=== PATIENT | female | born 1995 | race Caucasian/White ===

== ENCOUNTER 2021-12-09 11:00 | Outpatient (RCR) | payer OTHER, SELFPAY ==
--- NOTE | 2021-11-11 08:13 | PTOPEVAL ---
PHYSICAL THERAPY INITIAL EVALUATION. Thank you for referring Anna Ortiz to [facility] The patient is scheduled to be seen for therapy? 1x/week for 6 weeks. Please review, sign, date and return this plan of care MANINDER. I agree with and certify that the following plan of care is medically necessary. Referring Physician Date Attending Provider: Jennifer Soni *PT Outpatient Evaluation Start: 11/09/21 Evaluation Information Diagnosis upper and lower back pain Onset chronic Subjective Information Pt states she is in the Query Text:As Reported By Patient/ process of getting a breast Family reduction surgery. Completing physical therapy is one of her requirements. She reports a chronic history of upper and low back pain. Pt states bending over increases her upper back pain. She does not report anything that can make her pain any better. Pt states she does not have much pain at rest, but when performs ADLs or housework, it starts to hurt. Pt reports she has not tried any pain relief options other than medication. Pain Assessment Back Reported Pain Level 4 Pain Description Burning Pain Frequency Chronic,Intermittent Lowest Pain Intensity 0 Greatest Pain Intensity 8 Pain Aggravating Factors ADL's,Bending,Exercise/ Activity,Lifting Pain Behaviors None Pain Relief Interventions Used By Inactivity/Rest,Medication Patient Cervical and Lumbar ROM Cervical ROM Cervical Lateral Flexion Right (0-50) 40 Cervical Lateral Flexion Left (0-50) 40 Cervical ROM Comments flexion, extension, rotation ROM all WNL Lumbar ROM Lumbar Extension (0-40) 40 Lumbar Comments no direciton bias noted with repeated flexion or extension 7 cm of change with forward flexion 5 cm of change with lumbar extension Lower Extremity Muscle Strength Testing Gross Lower Extremity Strength BLE strength grossly 5/5 Upper Extremity Muscle Strength Testing Gross Upper Extremity Strength Comments BUE grossly 5/5 Muscle Length Testing Pectoralis Major Muscle Length (R) Mild Tightness,(L) Mild Tightness Posture Standing Position Head/
--- NOTE | 2021-12-09 11:50 | PTOPDC ---
Assessment and note entered by Ana Bolanos, PT, DPT Evaluation Information Assessment Status Progress Diagnosis upper and lower back pain Subjective Information Pt states she does her exercises when she remembers to, about 1-2 times per week. She states she has started walking for exercise and went to the gym last night. She states her back has been better since she quit her last job. She states she is unsure if therapy is helping. 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 Pt continues to report daily headaches. Reported Pain Level Pain Score 4: Self Report Assessment PT Clinical Summary Anna presents to therapy today for her progress report following 5 visits of therapy to treat her upper and lower back pain. Today she reports 20% improvement in overall symptoms. She demonstrates minimal improvement in her posture and body awareness. She continues to have postural abnormalities including a forward head, rounded shoulders, and increased lordosis. Per patient she is returning to the plastic surgeon next week for her last consultation prior to surgery. She states she felt like she received benefits from therapy for her low back pain and will talk to her primary doctor about returning to therapy to address this. Until then, the patient will be discharged from skilled therapy services with instructions to continue her HEP. Plan of Care PT Services Indicated No Treatment Frequency and to be d/c'ed Duration
== END 2021-12-12 15:35 | disposition home or self-care (01) ==
LOC: ANHGOSHPT 11:00
PROVIDERS: PCP Physician Assistant
DX: N62 Hypertrophy of breast (principal); M54.9 Dorsalgia, unspecified
CPT/HCPCS: 97110; 97112; 97140; 97161; 97530

== ENCOUNTER 2021-12-29 08:44 | Emergency (ER) | payer OTHER, SELFPAY ==
--- NOTE | ~2021-12-29 | XR_ITS ---
EXAMINATION: XR foot LT min 3V DATE: 12/29/2021 09:01 INDICATION: Left foot pain. TECHNIQUE: 4 views of left foot were obtained. COMPARISON: None. FINDINGS: Bone alignment is normal. No fracture. There is mild osteoarthritis of first metatarsophala ngeal joint. IMPRESSION: 1. Mild osteoarthritis of first metatarsophalangeal joint. Reviewed, dictated and finalized at location A.
[2021-12-29 08:49] VITALS: BP 115/64; PULSE 77; RESP 17; TEMP 36.6; O2SAT 100
[2021-12-29] MEDS: KETOROLAC 30 MG/ML VIAL (*BKC) IM (11:09)
--- NOTE | 2021-12-29 11:11 | ED.LOWEXIN ---
HPI - Extremity Injury (Lower) General Chief Complaint: Extremity Injury, Lower Stated Complaint: L foot pain Time Seen by Provider: 12/29/21 10:51 History of Present Illness HPI Narrative: Patient is a 26-year-old female here for evaluation of left foot pain over the past several days. Patient states the pain came on after a long walk. Pain is on the lateral aspect of her foot. Does not radiate. It is described as a cramp, somewhat better with rubbing the area. She attempted Tylenol and ibuprofen without relief, none today. No fevers, chills, nausea, vomiting, pain in her knees. No traumatic injury to the foot as far she knows. She usually wears flip-flops. Related Data Allergies Allergy/AdvReac Type Severity Reaction Status Date / Time Penicillins Allergy Severe HIVES, Unverified 07/25/18 15:01 LETHARGY GADOBENATE DIMEGLUMINE Allergy Mild NAUSEA, Uncoded 07/25/18 15:01 HOT, REDNESS ON CHEST Review of Systems Review of Systems: Gen.: Denies fevers or chills Eyes: Denies eye pain or visual change ENT: Denies congestion Respiratory: Denies shortness of breath or cough CV: Denies chest pain or palpitations GI: Denies abdominal pain nausea, emesis or diarrhea denies burning, urgency, frequency or hematuria Musculoskeletal: Reports left foot pain. Denies back pain or muscle pain Neuro: Denies numbness, tingling, weakness or focal weakness Skin: Denies rash Except as documented, all other systems reviewed and negative Exam Narrative: Gen: Eyes: EOMI, no icterus Pulm: Respirations even and unlabored, symmetric thorax expansion, no audible stridor or visible cyanosis CV: Regular rate per telemetry GI: No distension, no voluntary/involuntary guarding Neuro: AOx4, moves all extremities without apparent difficulty or weakness, follows commands Skin: No jaundice, no visible bruising, rashes, lesions or wounds on exposed skin MSK: Patient reports pain along the lateral aspect of her left foot, but this area is nontender to palpation, no underlying fluctuance or induration. No erythema to the foot. Full range of motion without pain. No bony tenderness to palpation throughout entirety of foot, ankle, lower leg. Compartments are soft. Psych: Normal mood/affect, insight/judgement good, adequate fund of knowledge, recent/remote memory intact Course Vital Signs Vital signs: Vital Signs Temperature 97.8 F 12/29/21 08:49 Pulse Rate 77 12/29/21 08:49 Respiratory Rate 17 12/29/21 08:49 Blood Pressure 115/64 12/29/21 08:49 Pulse Oximetry 100 12/29/21 08:49 Oxygen Delivery Room Air 12/29/21 08:49 Temperature 97.8 F 12/29/21 08:49 Pulse Rate 77 12/29/21 08:49 Respiratory Rate 17 12/29/21 08:49 Blood Pressure 115/64 12/29/21 08:49 Pulse Oximetry 100 12/29/21 08:49 Oxygen Delivery Room Air 12/29/21 08:49 MDM - Extremity Injury (Lower) MDM Narrative Medical decision making narrative: 26 yo F here for evaluation of pain at the lateral aspect of her left foot for the past several days onset after a long walk. She is nontoxic-appearing, vital signs. She has no bony tenderness to palpation. Plain films with evidence of arthritis but no fracture. Considered plantar fasciitis or arthritis. Doubt gout or septic arthritis as patient's foot is not erythematous, and she has been bearing weight. was given Toradol in the ED with improvement of her symptoms. Encouraged patient to wear supportive shoes and follow-up with her primary care provider. She was given reasons to return to the ED and she voiced understanding. Discharge Plan Discharge Clinical Impression: Acute foot pain Qualifiers: Laterality: left Qualified Code(s): M79.672 - Pain in left foot Patient Disposition: Home, Self-Care Condition: Stable Instructions: Antibiotic Form, Arthralgia (ED) Additional Instructions: Your x-ray showed moderate arthritis in the left foot. There is no fracture. Kriss
== END 2021-12-29 11:32 | disposition home or self-care (01) ==
PROVIDERS: Emergency Provider Emergency Medicine; PCP Physician Assistant
DX: M79.672 Pain in left foot (principal)
CPT/HCPCS: 73630; 96372; 99283; J1885

== ENCOUNTER 2022-04-27 20:48 | Emergency (ER) | payer OTHER, SELFPAY ==
[2022-04-27 20:51] VITALS: BP 116/79; PULSE 92; RESP 20; TEMP 37.6; O2SAT 99
--- NOTE | 2022-04-27 21:55 | PC.NURSE ---
pt. up to front desk admin stating we are leaving Pt. ambulated out of ed w/ steady gait. pt. had no signs of distress.
[2022-04-27 22:06] LABS: Influenza A QL RT-PCR Negative (Negative); Influenza B QL RT-PCR Negative (Negative); RSV RNA, RT-PCR Negative (Negative); SARS-CoV-2 RNA PCR Negative
== END 2022-04-27 22:09 | disposition left against medical advice (07) ==
PROVIDERS: Emergency Provider Emergency Medicine; PCP Physician Assistant
DX: R50.9 Fever, unspecified (principal); Z20.822 Contact with and (suspected) exposure to COVID-19
CPT/HCPCS: 87637; 99199

== ENCOUNTER 2022-04-30 11:48 | Emergency (ER) | payer OTHER, SELFPAY ==
[2022-04-30 12:07] VITALS: BP 116/70; PULSE 83; RESP 20; TEMP 36.1; O2SAT 100
--- NOTE | 2022-04-30 12:23 | ED.URI ---
HPI - URI/Sore Throat General Chief Complaint: Upper Respiratory Infection Stated Complaint: Sore Throat/ Sinus Time Seen by Provider: 04/30/22 12:23 History of Present Illness HPI Narrative: 27 y/o female presented for c/o sore throat and congestion for 5 days, with fever at the onset which has resolved. Denies sick contacts. Denies sob, wheezing, fever or chills. States she had one episode of vomiting since onset. Not taking anything for symptoms. Related Data Home Medications Medication Instructions Recorded Confirmed norelgestromin 150 mcg-e.estradiol 1 patch transdermal DIRECTED 04/30/22 04/30/22 35 mcg/24 hr weekly transderm patch (Zafemy) Allergies Allergy/AdvReac Type Severity Reaction Status Date / Time Penicillins Allergy Severe HIVES, Verified 04/30/22 12:06 LETHARGY GADOBENATE DIMEGLUMINE Allergy Mild NAUSEA, Uncoded 04/30/22 12:06 HOT, REDNESS ON CHEST Review of Systems Review of Systems: CONSTITUTIONAL: Denies body aches, fever, chills, or sweats. EYES: Denies visual changes, redness, or discharge. ENT: Reports rhinorrhea, congestion, denies otalgia. CARDIOVASCULAR: Denies chest pain, palpitations, or edema. RESPIRATORY: Denies dyspnea. GASTROINTESTINAL: Denies abdominal pain, nausea, vomiting, or diarrhea. SKIN: Denies rash, itching, or wounds. MUSCULOSKELETAL: Denies back pain, joint pain, or myalgia. NEUROLOGIC: Denies headache Exam Narrative: GENERAL: well-appearing, no acute distress. EYES: conjunctivae clear ENT: Mucous membranes moist. nasal congestion. TM pearly rodriguez with normal light reflex bilaterally; no tragal tenderness. Oropharynx normal Tonsils not enlarged and without exudate. No drooling, no hoarseness, no trismus, uvula midline. No tripod positioning, hot potato voice, or soft palate swelling. NECK: Supple. No lymphadenopathy CHEST: Clear to auscultation, breath sounds equal. No respiratory distress, speaks in full sentences. HEART: Regular rate and rhythm. No murmur heard. SKIN: Warm, dry, no rash. NEURO: Alert and oriented x3. Course Course Emergency Course: Patient is aware of diagnosis, understands and agrees to treatment plan. Anticipatory guidance given. Patient agrees to follow-up as directed and is aware of reasons to seek care at the emergency department. Portions of this record may have been created with voice recognition software Level of Care: Express Care Visit Vital Signs Vital signs: Vital Signs Temperature 97 F L 04/30/22 12:07 Pulse Rate 83 04/30/22 12:07 Respiratory Rate 20 04/30/22 12:07 Blood Pressure 116/70 04/30/22 12:07 Pulse Oximetry 100 04/30/22 12:07 Oxygen Delivery Room Air 04/30/22 12:07 Temperature 97 F L 04/30/22 12:07 Pulse Rate 83 04/30/22 12:07 Respiratory Rate 20 04/30/22 12:07 Blood Pressure 116/70 04/30/22 12:07 Pulse Oximetry 100 04/30/22 12:07 Oxygen Delivery Room Air 04/30/22 12:07 MDM - URI/Sore Throat MDM Narrative Medical decision making narrative: strep result reviewed with pt. Advise supportive treatments. Patient is appropriate for outpatient treatment and follow-up. Differential Diagnosis Differential diagnosis: Likely upper respiratory infection, viral infection and pharyngitis Lab Data Labs: Strep Screen Presumptive Negative *(Reference Range: Negative)* Discharge Plan Discharge Clinical Impression: Upper respiratory infection Qualifiers: URI type: unspecified URI Qualified Code(s): J06.9 - Acute upper respiratory infection, unspecified Patient Disposition: Home, Self-Care Condition: Stable Additional Instructions: Rapid strep swab was negative today You will be notified in a few days if the culture comes back positive for strep, and appropriate antibiotics will be called in at that time. if symptoms are due to a viral illness, it is not treated with an
== END 2022-04-30 12:26 | disposition home or self-care (01) ==
PROVIDERS: Emergency Provider Nurse Practitioner Family; PCP Physician Assistant
DX: J06.9 Acute upper respiratory infection, unspecified (principal)
CPT/HCPCS: 87081; 87880; 99213; G0463

== ENCOUNTER 2023-05-15 09:18 | Outpatient (CLI) | payer OTHER, SELFPAY ==
--- NOTE | 2023-05-15 09:39 | ECG_ITS ---
Measurements Intervals [place] Rate: 72 P: 59 [place]: 155 QRS: 58 QRSD: 78 T: 49 QT: 381 QTc: 420 Interpretive Statements SINUS RHYTHM LOW QRS VOLTAGE IN PRECORDIAL LEADS [QRS DEFLECTION < 1.0 mV IN CHEST LEADS] SEPTAL MYOCARDIAL INFARCTION , OF INDETERMINATE AGE [40+ ms Q WAVE IN V1/V2] NO PREVIOUS ECG AVAILABLE FOR COMPARISON Electronically Signed On 05-15-2023 15:37:02 AD COPY WRITER by Orlando Buenrostro M.D.
== END 2023-05-15 09:19 | disposition home or self-care (01) ==
LOC: ANHCARD 09:20
PROVIDERS: PCP Physician Assistant; Visit Provider Physician Assistant
DX: Z01.818 Encounter for other preprocedural examination (principal); I21.9 Acute myocardial infarction, unspecified
CPT/HCPCS: 93005

== ENCOUNTER 2023-05-21 13:28 | Outpatient (CLI) | payer OTHER, SELFPAY ==
--- NOTE | 2023-05-21 | ECG_ITS ---
Measurements Intervals [place] Rate: 83 P: 67 [place]: 129 QRS: 70 QRSD: 88 T: 49 QT: 368 QTc: 433 Interpretive Statements SINUS RHYTHM LOW QRS VOLTAGE IN PRECORDIAL LEADS [QRS DEFLECTION < 1.0 mV IN CHEST LEADS] OTHERWISE WITHIN NORMAL LIMITS COMPARED TO ECG 05/15/2023 09:45:50 NO SIGNIFICANT CHANGES Electronically Signed On 05-21-2023 18:36:17 SLICE PLUG CUTTER OPERATOR HELPER by Mateusz Smalls M.D.
== END 2023-05-21 13:29 | disposition home or self-care (01) ==
PROVIDERS: PCP Physician Assistant; Visit Provider Physician Assistant
DX: Z01.818 Encounter for other preprocedural examination (principal)
CPT/HCPCS: 93005

== ENCOUNTER 2023-07-09 18:25 | Emergency (ER) | payer OTHER, SELFPAY ==
--- NOTE | ~2023-07-09 | XR_ITS ---
EXAMINATION: XR foot RT min 3V DATE: 07/09/2023 18:49 INDICATION: Right foot pain. TECHNIQUE: 4 views of right foot were obtained. COMPARISON: None. FINDINGS: There is mild hallux valgus. No fracture. There is mild osteoarthritis at some of the inter phalangeal joints and first metatarsophalangeal joint. IMPRESSION: 1. Mild polyarticular osteoarthritis. Reviewed, dictated and finalized at location E.
[2023-07-09 18:33] VITALS: BP 125/74; RESP 16; TEMP 36.8; O2SAT 100
--- NOTE | 2023-07-09 18:36 | ED.EXTPRO ---
HPI - Extremity Problem General Chief complaint: Extremity Problem,Nontraumatic Stated complaint: right foot pain Time Seen by Provider: 07/09/23 18:35 Source: patient Mode of arrival: ambulatory Limitations: no limitations History of Present Illness HPI Narrative: Anna is a 28-year-old female patient presenting to the clinic today with complaints of right lateral plantar foot pain-states a few years ago she had a hairline fracture in this area and over the past few days she has been having worsening of pain. States she has been walking more. No known injury. Related Data Home Medications Medication Instructions Recorded Confirmed norelgestromin 150 mcg-e.estradiol 1 patch transdermal DIRECTED 04/30/22 07/09/23 35 mcg/24 hr weekly transderm patch (Zafemy) Allergies Allergy/AdvReac Type Severity Reaction Status Date / Time Penicillins Allergy Severe HIVES, Verified 07/09/23 18:28 LETHARGY GADOBENATE DIMEGLUMINE Allergy Mild NAUSEA, Uncoded 07/09/23 18:28 HOT, REDNESS ON CHEST Review of Systems Review of Systems: Pertinent positives per HPI. Patient denies any fever, chills, rash, headache, visual changes, dizziness, cough, runny nose, sore throat, shortness of breath, chest pain, palpitations, nausea, vomiting, diarrhea, constipation, abdominal pain, or any urinary issues. PMFSH Comments At the time of my signature, I reviewed and agree with the nursing past medical, surgical, social, and family history. There is no relevant family history pertinent to the patient complaint. Exam Narrative: General: Well-developed, well nourished, in no apparent distress Head: Normocephalic, atraumatic. Cardio: Regular rate and rhythm, s1 and s2 normal, no murmur appreciated. Resp: Clear to auscultation bilaterally, no rhonchi, rales, wheezing or rubs. Musculoskeletal: No deformity, no swelling or edema noted, tender to palpation over the right lateral plantar foot over the 5th metatarsal, no pain with dorsal flexion, plantar flexion, valgus, or varus testing of the right foot, grossly normal range of motion, muscle strength strong and equal, peripheral pulse strong, no edema, no cyanosis, normal gait and station Course Course Emergency Course: Portions of this record may have been created with voice recognition software. Level of Care: Express Care Visit Vital Signs Vital signs: Vital signs reviewed MDM - Extremity (Nontraumatic) MDM Narrative Medical decision making narrative: At the time of visit patient is resting comfortably on the exam table. Patient appears to be nontoxic. Diagnostics: X-ray of the right foot was [id number] shows some mild polyarticular osteoarthritis Plan: I suspect patient has acute foot pain possibly due to a flare-up of osteoarthritis. Supportive measures were discussed with the patient and they voiced understanding discharge instructions and agrees to treatment plan. Return precautions reviewed Differential Diagnosis Differential diagnosis: Likely other (Osteoarthritis of the foot, foot strain, plantar fasciitis, tendinitis) Imaging Data Radiologist's impression: ITS Impressions Foot X-Ray 07/09/23 19:06 IMPRESSION: 1. Mild polyarticular osteoarthritis. Discharge Plan Discharge Clinical Impression: Acute foot pain Qualifiers: Laterality: right Qualified Code(s): M79.671 - Pain in right foot Osteoarthritis Qualifiers: Osteoarthritis location: foot Osteoarthritis type: primary Laterality: right Qualified Code(s): M19.071 - Primary osteoarthritis, right ankle and foot Patient Disposition: Home, Self-Care Condition: Stable Instructions: Antibiotic Form, Osteoarthritis (ED), Foot Sprain (ED) Additional Instructions: X-rays negative for any sign of fracture or malalignment of the right foot. Does show mild polyarticular osteoarthritis. Rest, ice, and elevate Tylenol/motrin for pain as discussed.
== END 2023-07-09 19:21 | disposition home or self-care (01) ==
PROVIDERS: Emergency Provider Nurse Practitioner Family; PCP Physician Assistant
DX: M19.071 Primary osteoarthritis, right ankle and foot (principal)
CPT/HCPCS: 73630; 99213; G0463

== ENCOUNTER 2023-08-30 12:48 | Emergency (ER) | payer OTHER, SELFPAY ==
[2023-08-30 13:08] VITALS: BP 110/68; PULSE 95; RESP 16; TEMP 36.5; O2SAT 100
--- NOTE | 2023-08-30 13:18 | ED.SKABFB ---
HPI - Skin/Abscess/Foreign Bdy General Chief complaint: Skin/Abscess/Foreign Body Stated complaint: breast issue Time Seen by Provider: 08/30/23 13:05 Source: patient Mode of arrival: ambulatory Limitations: no limitations History of Present Illness HPI narrative: Patient is a 28-year-old female who presents concern for wound dehiscence. Patient had breast reduction 3 and half weeks ago. Patient has all surgeon yesterday for concern of open wounds at incision site at base of breast. Was told it was normal but would like a 2nd opinion. Reports drainage from wounds has decreased. Patient still on clindamycin and putting antibiotic ointment on incision sites. Reports intermittent redness to breast along with swelling and warmth. Denies any fever, chills, nausea, vomiting, diarrhea. States she does not trust her surgeon's office and felt like they rushed her out. Related Data Home Medications Medication Instructions Recorded Confirmed norelgestromin 150 mcg-e.estradiol 1 patch transdermal DIRECTED 04/30/22 08/30/23 35 mcg/24 hr weekly transderm patch (Zafemy) Allergies Allergy/AdvReac Type Severity Reaction Status Date / Time Penicillins Allergy Severe HIVES, Verified 08/30/23 13:29 LETHARGY GADOBENATE DIMEGLUMINE Allergy Mild NAUSEA, Uncoded 08/30/23 13:29 HOT, REDNESS ON CHEST Review of Systems Review of Systems: All systems reviewed & are unremarkable except as noted in HPI and below Constitutional: Constitutional: Denies body ache(s), Denies chills, Denies fatigue, Denies fever(s), Denies headache(s), Denies malaise and Denies weakness Eyes: Eyes: Denies blurry vision, Denies irritation and Denies loss of vision ENT: Denies otalgia, Denies headache(s), Denies nasal discharge, Denies sinus pain and Denies sore throat Cardiovascular: Cardiovascular: Denies chest pain, Denies irregular heart rhythm and Denies dyspnea Respiratory: Respiratory: Denies dyspnea Gastrointestinal: Gastrointestinal: Denies abdominal pain, Denies melena, Denies hematochezia, Denies diarrhea, Denies nausea and Denies vomiting Musculoskeletal: Musculoskeletal: Denies back pain, Denies myalgias and Denies arthralgias Integumentary/Breasts: Skin/Breast: Denies pruritus, Denies rash and Reports wounds Neurologic: Denies headache(s), Denies loss of vision and Denies weakness Psychiatric: Psychiatric: Reports no additional psychiatric complaints Endocrine: Endocrine: Denies fatigue PMFSH Comments At time of signature, agree with nursing past medical, surgical, social and family history. There is no relevant family history pertinent to the presenting complaint. Exam Const: General: cooperative, healthy appearing, comfortable, no acute distress and well nourished Nutritional Appearance: well nourished Orientation/consciousness: patient oriented x3 Limitations: no limitations HENMT: Head: normal to inspection, normocephalic and atraumatic Ears: hearing grossly normal bilaterally and external ears normal Face/Nose/Sinus: Normal external nose present, normal facial exam and face symmetric Face and sinus: normal facial exam and face symmetric Mouth: Yes lip normal Eyes: General: appearance normal, both eyes and all related structures Alignment and Position: alignment normal and position normal Periorbital: periorbital findings normal Eyelids: eyelids normal Pupils: Equal, round and reactive pupils present EOM: EOMs intact bilaterally Neck: Neck: normal visual inspection, full ROM and supple Chest: Chest palpation & inspection: normal inspection of the chest Breast/axilla inspection: abnormal inspection of the breast bilateral other (Wound dehiscence noted to incision site. No surrounding erythema, drainage or necrosis. Wound bed pink and healing); no erythema Chest/axillae images: 1. [place] area of dehiscence measuring 1 cm tall by 1.5 cm wide 2. [place] area of dehiscence measuring 1 cm tall
== END 2023-08-30 14:03 | disposition home or self-care (01) ==
PROVIDERS: Emergency Provider Nurse Practitioner Family; PCP Physician Assistant
DX: T81.31XA Disruption of external operation (surgical) wound, not elsewhere classified, initial encounter (principal)
CPT/HCPCS: 99211; G0463

== ENCOUNTER 2023-09-11 09:05 | Outpatient (CLI) | payer OTHER, SELFPAY ==
--- NOTE | ~2023-09-11 | US_ITS ---
US breast BI complete 09/11/2023 09:56 Indication: Status post breast augmentation. Breast pain. Procedure: High-resolution complete bilateral breast ultrasound including all 4 quadrants in the suba reolar locations Comparison: No prior studies for comparison. Findings: Right breast: Normal heterogeneous echotexture without focal solid or cystic mass. Left breast: In the inner aspect of the left breast there are small areas of fluid. No discrete irreg ular shaped fluid collection or mass is identified. Impression: 1: Fluid present in multiple pockets of the left breast medially, most likely postoperative, although infection is not excluded. No abnormalities of the right breast are identified. BI-RADS CATEGORY 2 - BENIGN FINDINGS Reviewed, dictated and finalized at location B. Impression: 1: Fluid present in multiple pockets of the left breast medially, most likely p ostoperative, although infection is not excluded. No abnormalities of the right breast are identified. BI-RADS CATEGORY 2 - BENIGN FINDINGS
== END 2023-09-11 09:06 | disposition home or self-care (01) ==
LOC: CHSIMG 09:08
PROVIDERS: PCP Physician Assistant; Visit Provider Physician Assistant
DX: N64.4 Mastodynia (principal)
CPT/HCPCS: 76641

== ENCOUNTER 2023-10-19 15:48 | Emergency (ER) | payer OTHER, SELFPAY ==
--- NOTE | 2023-10-19 15:55 | ED.SKABFB ---
HPI - Skin/Abscess/Foreign Bdy General Chief complaint: Skin/Abscess/Foreign Body Stated complaint: eczema issue Time Seen by Provider: 10/19/23 16:00 Source: patient Mode of arrival: ambulatory Limitations: no limitations History of Present Illness HPI narrative: Anna is a 28-year-old female who presents to the clinic today with complaints of a itchy, raised rash to her middle back, left elbow, and bilateral inner thighs for 2 weeks. She was working out at the gym and use the tanning bed afterwards and noticed her rash getting worse. She states he has she has been using triamcinolone cream without much relief. She denies any fevers/chills, body aches, or joint pain. Related Data Home Medications Medication Instructions Recorded Confirmed norelgestromin 150 mcg-e.estradiol 1 patch transdermal DIRECTED 04/30/22 10/19/23 35 mcg/24 hr weekly transderm patch (Zafemy) clobetasol 0.05 % topical ointment 1 applic topical BID PRN Rash 10/19/23 10/19/23 hydroxyzine HCl 25 mg tablet 1 mg PO DAILY 10/19/23 10/19/23 Allergies Allergy/AdvReac Type Severity Reaction Status Date / Time Penicillins Allergy Severe HIVES, Verified 10/19/23 15:52 LETHARGY GADOBENATE DIMEGLUMINE Allergy Mild NAUSEA, Uncoded 10/19/23 15:52 HOT, REDNESS ON CHEST Review of Systems Review of Systems: Pertinent positives per HPI. Patient denies any fever, chills, headache, visual changes, dizziness, cough, runny nose, sore throat, shortness of breath, chest pain, palpitations, nausea, vomiting, diarrhea, constipation, abdominal pain, or any urinary issues. PMFSH Comments At the time of my signature, I reviewed and agree with the nursing past medical, surgical, social, and family history. There is no relevant family history pertinent to the patient complaint. Exam Narrative: General: Well-developed, well nourished, in no apparent distress Integumentary: [place], warm, and dry, intact, erythematous, macular rash to left lateral elbow, middle back, and bilateral medial, proximal thighs Course Course Emergency Course: Portions of this record may have been created with voice recognition software. Level of Care: Express Care Visit Vital Signs Vital signs: Vital Signs Temperature 37.4 C 10/19/23 15:56 Pulse Rate 87 10/19/23 15:56 Respiratory Rate 16 10/19/23 15:56 Blood Pressure 117/66 10/19/23 15:56 Pulse Oximetry 100 10/19/23 15:56 Oxygen Delivery Room Air 10/19/23 15:56 Temperature 37.4 C 10/19/23 15:56 Pulse Rate 87 10/19/23 15:56 Respiratory Rate 16 10/19/23 15:56 Blood Pressure 117/66 10/19/23 15:56 Pulse Oximetry 100 10/19/23 15:56 Oxygen Delivery Room Air 10/19/23 15:56 Vital signs reviewed MDM - Skin/Abscess/Foreign Bdy MDM Narrative Medical decision making narrative: At the time of visit patient is resting comfortably on the exam table. Patient appears to be nontoxic. Plan: I suspect patient likely has contact dermatitis. I will send in prescription for oral steroids. Prescription reviewed with patient. Supportive measures were discussed with the patient and they voiced understanding discharge instructions and agrees to treatment plan. Return precautions reviewed Differential Diagnosis Differential diagnosis: Likely abscess of skin or subcutaneous tissue, urticaria, herpes zoster, allergic reaction to drug, cellulitis, eczema, insect bites, impetigo and contact dermatitis Discharge Plan Discharge Clinical Impression: Dermatitis Patient Disposition: Home, Self-Care Condition: Stable Instructions: Antibiotic Form, Dermatitis (ED) Additional Instructions: Continue triamcinolone cream as directed Take prednisone as directed Avoid hot showers May apply non scented moisturizer to use skin-Cetaphil, Lubriderm, or Aquaphor lotion twice daily Avoid scratching as this can cause a secondary infection May continue taking hydroxyzine as
[2023-10-19 15:56] VITALS: BP 117/66; PULSE 87; RESP 16; TEMP 37.4; O2SAT 100
== END 2023-10-19 16:25 | disposition home or self-care (01) ==
PROVIDERS: Emergency Provider Nurse Practitioner Family; PCP Physician Assistant
DX: L30.9 Dermatitis, unspecified (principal)
CPT/HCPCS: 99213; G0463